=== PATIENT | male | born 1955 ===

== ENCOUNTER 2024-02-14 11:29 | Emergency (ER) | payer MEDICARE, OTHER, SELFPAY ==
[2024-02-14 11:33] VITALS: BP 164/97
--- NOTE | 2024-02-14 11:52 | EDRN ---
Pt states he has been having lightheadedness and palpatations intermitently over past several weeks but this morning more frequent, feeling syncopal when got into his care to drive then spouse took over driving and pt developed pain in his chest.
Pain was R mid sternum also intermittent. Pt awoke this am w/ pain in upper back attributed to wrestling w/ granddaughters yesterday, having them on his shoulders. Pain was on R mid sternum about 2-3./10, sharp.
[2024-02-14 11:55] VITALS: BMI 27.0
[2024-02-14 11:58] VITALS: BP 146/85
[2024-02-14 12:00] VITALS: BP 149/87
[2024-02-14 12:15] LABS: % Basophils 0.7 % (0-2); % Eosinophils 1.8 % (0-6); % Immature Granulocytes 0.4 % (0-0.5); % Lymphocytes 31.1 % (20.5-51.1); % Monocytes 9.4 % (1.7-9.3); % Neutrophils 56.6 % (42.2-75.2); Absolute Eosinophils 0.1 10^3/uL (0-0.7); Absolute Lymphocytes 1.7 10^3/uL (1.2-3.4); Absolute Monocytes 0.5 10^3/uL (0.1-0.6); Absolute Neutrophils 3.1 10^3/uL (1.4-6.5); Hematocrit 43.3 % (39.0-52.0); Hemoglobin 15.3 g/dL (13.0-18.0); Mean Corp Hgb Conc. 35.3 g/dL (33.0-37.0); Mean Corpuscular Volume 90.6 fL (80.0-94.0); Mean Platelet Volume 10.1 fL (7.4-10.4); Nucleated Red Blood Cells % 0 % (-); Platelet Count 227 10^3/uL (130-400); Red Blood Cell Count 4.78 10^6/uL (4.70-6.10); Red Cell Dist. Width 12.4 % (11.5-14.5); White Blood Cell Count 5.4 10^3/uL (4.8-10.8)
--- NOTE | 2024-02-14 12:15 | EDRN ---
Zahira Boss PA in to see pt.
--- NOTE | 2024-02-14 12:15 | ED.GENMED ---
History of Present Illness
General
Chief Complaint: Chest Pain
Time Seen by Provider: 02/14/24 12:03
History of Present Illness
History of Present Illness:
68-year-old male with history of hypertension presents to the emergency department for evaluation of heart palpitations that been ongoing intermittently for the past several weeks. He has had numerous bouts of these lasting anywhere from several
seconds to several minutes. These are seemingly unprovoked and random. He had an event today associated with shortness of breath and chest pain while watching his granddaughter's soccer game prompting him to come to the hospital. Currently feels
well. Follows with cardiology at [facility]. No recent fevers or chills. Denies any stimulant drug use
Review of Systems
Review of Systems
Allergies reviewed?: Yes
All Other Systems: ROS reviewed and negative except as documented in HPI and ROS
Phy Exam
Physical Exam
Physical Exam:
GEN: Well appearing, NAD, WDWN
HEENT: Oral mucosa moist, no scleral icterus
Cardiac: Regular rate and rhythm, no murmurs
Lung: No respiratory distress, no tachypnea, lungs clear to auscultation
MSK: No gross deformity or injuries
Skin: Good color, no pallor or jaundice, no rashes
Neuro: AO x3, moves all extremities freely
Psych: Calm, cooperative
Scores
Heart Score for Chest Pain Patients
STEMI patient?: No
History: Slightly or Non-Suspicious
ECG: Normal
Age: >/= 65 years
Risk Factors: 1 or 2 Risk Factors
Troponin: </= Normal Limit
Heart Score for Chest Pain Patients: 3
Heart Score Risk: 2.5% MACE over next 6 weeks
Course
Orders/Labs/Results
Orders:
Orders
02/14/24 11:30
Electrocardiogram (*1) Urgent
Reason for Study: Shortness of Breath
EKG- Treatment ONCE
02/14/24 11:51
Cardiac Monitoring- Treatment ONCE
IV Insert/Care/Rem.- Treatment PRN
02/14/24 12:07
Complete Blood Count/With Diff Urgent
Comprehensive Metabolic Panel Urgent
TSH Reflex To Free T4 Urgent
Comment: ADD ON
Troponin I Urgent
02/14/24 12:14
Add On- LAB Urgent
Tests Added?: TSH w reflex
CR Chest - 2 Views Urgent
Comment:
Reason For Exam: palpitations
Abnormal Lab Results
02/14/24
12:07
MCH 32.0 H pg
(27.0-31.0)
Monocytes % 9.4 H %
(1.7-9.3)
Calcium 10.7 H mg/dl
(8.4-10.2)
02/14/24 12:07
02/14/24 12:07
Vital Signs
Initial and Last Documented VS:
Initial Vital Signs
Temp Pulse Resp BP Pulse Ox
97.5 F 73 20 164/97 100
02/14/24 11:33 02/14/24 11:33 02/14/24 11:33 02/14/24 11:33 02/14/24 11:33
Last Documented Vital Signs
Temp Pulse Resp BP Pulse Ox
97.5 F 78 17 157/89 98
02/14/24 11:33 02/14/24 14:03 02/14/24 14:03 02/14/24 14:03 02/14/24 14:03
MDM/Problems Addressed
MDM/Problems Addressed:
Pt did have palpitations in ED with no events on telemetry. Although this is reassuring against organic cardiac disease, nevertheless recommend Holter monitor through his outpatient marriage counselor.
Comment
Comment:
EKG independently interpreted by me shows normal sinus rhythm at a rate of [address] changes concerning for ischemia, some patient motion artifact in the inferior leads limits interpretation isolated PVC noted
*Critical Care Note
Total Time (30-74mins, 75-104mins- exclusive of procedures): Not Applicable
ED Attending Note
-
Portions of this chart may have been created with voice recognition software.� Occasional wrong word or��sound alike� substitutions may have occurred due to the inherent limitations of voice recognition software.
Discharge Plan
Departure
Patient Disposition: Home (Routine Discharge)
Date of Disposition: 02/14/24
Time of Disposition: 13:58
Patient with high blood pressure during this ER visit?: No
Discharge Problem:
Heart palpitations
Instructions: Heart Palpitations
Referrals:
Ray Au, DO [Family Provider] -
Activity Restrictions/Additional Instructions:
Discuss a Holter monitor with your primary marriage counselor
Interventions
Interventions:
*Risk Screen - Suicide Last Done: 02/14/24 11:57
*General Assessment Last Done: 02/14/24 11:56
*Neglect/Abuse Screening Last Done: 02/14/24 11:57
ED- Fall Risk Assessment Last Done: 02/14/24 11:57
*ED COVID-19 Vaccine History Last Done: 02/14/24 11:33
*Nursing Disposition Last Done: 02/14/24 14:18
ED- Cardiac Assessment Last Done: 02/14/24 12:10
ED- Neurological Assessment Last Done: 02/14/24 12:10
ED Swallowing Screen Last Done: 02/14/24 11:30
Discharge Date and Time
Discharge Date/Time: 02/14/24 14:19
Print Language: PASHTO
[2024-02-14 12:28] LABS: ALT (SGPT) 21 U/L (0-50); AST (SGOT) 28 U/L (17-59); Albumin 4.5 g/dl (3.5-5.0); Alkaline Phosphatase 66 U/L (38-126); Blood Urea Nitrogen 19 mg/dl (9-20); Calcium 10.7 mg/dl (8.4-10.2); Carbon Dioxide 25 mmol/L (22-30); Chloride 105 mmol/L (98-107); Estimated Creatinine Clearance 60 ml/min; Glucose 98 mg/dl (70-99); Potassium 4.1 mmol/L (3.5-5.1); Sodium 140 mmol/L (135-145); Total Bilirubin 0.9 mg/dl (0.2-1.3); eGFR > 60.00
[2024-02-14 12:40] LABS: Troponin I < 0.012 ng/ml
[2024-02-14 13:00] VITALS: BP 137/82
[2024-02-14 14:03] VITALS: BP 157/89
[2024-02-14 14:26] LABS: TSH Reflex To Free T4 1.33 uIU/ml (0.47-4.68)
== END 2024-02-14 14:19 | disposition home or self-care (01) ==
LOC: EMR 11:29
PROVIDERS: EMERGENCY PHYSICIAN Emergency Medicine; FAMILY PHYSICIAN Family Medicine
DX: R00.2 Palpitations (principal); R06.02 Shortness of breath; R07.9 Chest pain, unspecified; I10 Essential (primary) hypertension; Z91.048 Other nonmedicinal substance allergy status
CPT/HCPCS: 99284; 71046; 80053; 84443; 84484; 85025; 93005